=== PATIENT | male | born 1970 | race Caucasian/White ===

== ENCOUNTER 2022-07-28 11:17 | Outpatient (CLI) | payer OTHER, SELFPAY ==
--- NOTE | 2022-07-28 11:28 | XR_ITS ---
WS: [id number] Left ankle, 2 views, 07/28/2022 Clinical Data: PAIN Comparison: None. Findings: No new fractures or dislocations are seen. There is internal fixation of old distal left fibular frac ture with a plate and 6 orthopedic screws. There is an additional PA screw in the distal left fibula. The ankle mortise is normal. The talus and calcaneus are unremarkable. No soft tissue swelling over the medial or lateral malleolus is seen. There is a plantar spur. XR/XR ankle LT 2V [id number] Impression: 1. Internal fixation of old distal left fibular fracture. 2. Plantar spur
--- NOTE | 2022-07-28 11:28 | XR_ITS ---
WS: [id number] Lumbar spine, 3 views, 07/28/2022 Clinical Data: PAIN Comparison: None. Findings: No compression fractures or subluxation is seen. There is degenerative disc narrowing at all levels f rom L1-L2 through L5-S1. There are anterior osteophytes at L1-L5. There is a levoscoliosis. There are calcifications in the wall of the abdominal aorta but no aneurysm.. The transverse processes and SI joints are normal. XR/XR lumbar spine 2-3V* [id number] Impression: 1. Degenerative disc narrowing L1-L2 through L5-S1. 2. Levoscoliosis and osteophytes L1-L5.
== END 2022-07-28 11:18 | disposition home or self-care (01) ==
LOC: RAD 11:18
PROVIDERS: PCP Nurse Practitioner Family; Visit Provider Dermatology
DX: Z02.71 Encounter for disability determination (principal); M54.50 Low back pain, unspecified; M25.572 Pain in left ankle and joints of left foot; M77.32 Calcaneal spur, left foot; M25.78 Osteophyte, vertebrae; M41.86 Other forms of scoliosis, lumbar region
CPT/HCPCS: 72100; 73600

== ENCOUNTER 2023-08-16 11:54 | Outpatient (CLI) | payer MEDICAID, SELFPAY ==
--- NOTE | 2023-08-16 12:06 | XRR_ITS ---
PROCEDURE INFORMATION: Exam: XR Right Knee Exam date and time: 08/16/2023 12:19 PM Age: 53 years old Clinical indication: Pain; Knee; Bilateral; Additional info: Bilateral knee joint pain x 3 months TECHNIQUE: Imaging protocol: Radiologic exam of the right knee. Views: 3 views. COMPARISON: No relevant prior studies available. FINDINGS: Bones/joints: Normal. Soft tissues: Normal. XR/XR knee RT 3V* [id number] IMPRESSION: No acute findings.
--- NOTE | 2023-08-16 12:06 | XRR_ITS ---
PROCEDURE INFORMATION: Exam: XR Left Knee Exam date and time: 08/16/2023 12:19 PM Age: 53 years old Clinical indication: Pain; Knee; Bilateral; Additional info: Bilateral knee joint pain x 3 months TECHNIQUE: Imaging protocol: Radiologic exam of the left knee. Views: 3 views. COMPARISON: CR XR ankle LT 2V [id number] 07/28/2022 11:29 AM FINDINGS: Bones/joints: Negative for acute bony abnormality Soft tissues: Normal. XR/XR knee LT 3V* [id number] IMPRESSION: No acute findings.
== END 2023-08-16 11:55 | disposition home or self-care (01) ==
PROVIDERS: PCP Nurse Practitioner Family; Visit Provider Family Medicine
DX: M25.561 Pain in right knee (principal); M25.562 Pain in left knee
CPT/HCPCS: 73562

== ENCOUNTER 2025-01-31 15:47 | Emergency (ER) | payer MEDICAID, SELFPAY ==
[2025-01-31 16:08] VITALS: BP 110/68; PULSE 82; RESP 16; TEMP 36.6; O2SAT 97; BMI 31.1
--- NOTE | 2025-01-31 16:12 | W.ED.LOWEXIN ---
HPI - Extremity Injury (Lower) General: Chief Complaint: Extremity Injury, Lower Stated Complaint: Left toe injury Time Seen by Provider: 01/31/25 16:09 History of Present Illness: 54-year-old male patient comes in today with a injury to his left foot that occurred about 1 month ago. Patient states that he believes that he stubbed it about a month ago. Patient has noticed some redness and an ulceration to the middle toe on the dorsal aspect. Patient denies any history of diabetes. Patient does have some chronic back pain and neuropathy in his feet secondary to it. Related Data Home Medications ?Medication ?Instructions ?Recorded ?Confirmed hydroxyzine HCl 50 mg tablet 50 mg PO QID PRN 06/25/20 06/25/20 metoprolol succinate 50 mg capsule 100 mg PO DAILY 06/25/20 06/25/20 sprinkle, ext. release 24 hr trazodone 150 mg tablet 300 mg PO DAILY 06/25/20 06/25/20 Previous Rx's ?Medication ?Instructions ?Recorded doxycycline hyclate 100 mg tablet 100 mg PO BID 10 days #20 tabs 01/31/25 Allergies Allergy/AdvReac Type Severity Reaction Status Date / Time No Known Allergies Allergy Verified 06/25/20 13:15 Review of Systems General: Reports: 10 or more systems reviewed and unremarkable except in HPI and below PFSH ED PFSH: Social History Current gender identity: Male Physical Exam Const: COMMON NORMALS: alert HENMT: COMMON NORMALS: normocephalic HEAD & SCALP: normocephalic Neck/C-Spine: COMMON NORMALS: full ROM Resp: COMMON NORMALS: normal respiratory effort Cardio: COMMON NORMALS: regular rate RATE: regular rate GI: COMMON NORMALS: Soft to palpation PALPATION: Yes Soft to palpation Back/Pelvis: COMMON NORMALS: thoracic and lumbar spine normal to inspection Extremity: COMMON NORMALS: full ROM Neuro: SENSORIUM/ORIENTATION: Yes alert Skin: COMMON NORMALS: turgor normal NARRATIVE SKIN EXAM: Note a ulcer to the third toe dorsal aspect PIP joint. GENERAL SKIN EXAM: turgor normal Course Vital Signs: Vital signs: Vital Signs Temperature 97.8 F 01/31/25 16:08 Pulse Rate 82 01/31/25 16:08 Respiratory Rate 16 01/31/25 16:08 Blood Pressure 110/68 01/31/25 16:08 Pulse Oximetry 97 01/31/25 16:08 Oxygen Delivery Me thod Room Air 01/31/25 16:08 MDM - Extremity Injury (Lower) Medical Decision Making 54-year-old male patient comes in today for injury to the left foot from approximately 1 month ago. Patient believes he stubbed it and developed a sore to the foot but has not recovered or healed completely. Patient is concerned due to some swelling and discomfort. Differential diagnosis includes not limited to wound infection, osteomyelitis, neuropathy, diabetes mellitus. X-ray notes a cortical irregularity to the fourth digit which suggest a possible fracture. Patient will be placed on antibiotics for a wound infection to the third toe. Recommended follow-up with foot and ankle specialist Dr. Fabian or Dr. Dinh for further evaluation and treatment of the wound. Patiently placed on doxycycline 100 mg twice a day and recommended to clean wound twice daily and apply antibiotic ointment. Patient reports understanding agreed to plan. Lab Data Radiology Impressions Foot X-Ray 01/31/25 16:16 IMPRESSION: Cortical irregularity in the distal portion of the proximal phalanx of the 4th toe, underlying fracture can not be excluded, recommend clinical correlation for point tenderness at this site. Laboratory Results POC Glucose 76 mg/dL (70-110) 01/31/25 16:38 All radiology interpretation(s) finalized by discharge Discharge Plan Discharge Patient Disposition: Home Clinical Impression: Infection of skin of toes Condition: Stable Prescriptions: New doxycycline hyclate 100 mg tablet 100 mg PO BID 10 Days Qty: 20 0RF No Action hydroxyzine HCl 50 mg tablet 50 mg PO QID PRN trazodone 150 mg tablet 300 mg PO DAILY metoprolol succinate 50 mg capsule,sprinkle,ER 24hr 100 mg PO DAILY Discharge Orders: Discharge ED (Routine); Ordered 01/31/25 Ordered By: Nolan Goodman Referrals: Dayanna Kennedy FNP [Primary Care Provider] - Discharge Diet: Usual diet Discharge Activity: Increase activity as tolerated Patient Instructions: Wound Care (General) Activity Restrictions/Additional Instructions: Clean wounds to the toe twice daily thoroughly dry, apply antibiotic ointment and cover with a clean sock. Take oral antibiotics as directed. Follow-up with foot and ankle surgeon Dr. Fabian or Dr. Dinh. Return to ER for high fever, increasing redness and swelling to the foot, or new concerns. Print Language: Serbian Coding Level of Care Code ED Packing Machine Operator for Aris Ojeda
--- NOTE | 2025-01-31 16:16 | XRR_ITS ---
PROCEDURE INFORMATION: Exam: XR Left Foot Exam date and time: 01/31/2025 5:00 PM Age: 54 years old Clinical indication: Pain; Toes; Left; Prior surgery; Surgery date: 6+ months; Surgery type: Ankle repair; Additional info: Toe injury TECHNIQUE: Imaging protocol: Radiologic exam of the left foot. Views: 3 or more views. COMPARISON: CR XR ankle LT 2V [id number] 07/28/2022 11:29 AM FINDINGS: Bones/joints: Cortical irregularity in the distal portion of the proximal phalanx of the 4th toe, underlying fracture cannot be excluded at this site, recommend clinical correlation for point tenderness. Status post plate and screw for distal femoral fracture. Hardware is intact. Calcaneal spur. Soft tissues: Normal. XR/XR foot LT min 3V* [id number] IMPRESSION: Cortical irregularity in the distal portion of the proximal phalanx of the 4th toe, underlying fracture can not be excluded, recommend clinical correlation for point tenderness at this site.
[2025-01-31 16:42] LABS: Glucose Point of Care 76 mg/dL (70-110)
[2025-01-31] MEDS: mupirocin oint 22 gm 1 APPLIC TOPICAL (17:36)
[2025-01-31] MEDS: doxycycline 100 mg Tablet PO (17:36)
[2025-01-31 18:05] VITALS: BP 114/78; PULSE 85; O2SAT 95
--- NOTE | 2025-02-04 07:52 | DCPLANNER ---
messaged podiatry for er f/u
== END 2025-01-31 18:06 | disposition home or self-care (01) ==
PROVIDERS: Emergency Provider Nurse Practitioner Family; PCP Nurse Practitioner Family
DX: L03.032 Cellulitis of left toe (principal)
CPT/HCPCS: 36416; 73630; 82962; 99284; J9999

== ENCOUNTER 2025-06-20 10:22 | Emergency (ER) | payer MEDICAID, SELFPAY ==
[2025-06-20 10:25] VITALS: BP 160/96; PULSE 106; RESP 16; TEMP 36.6; O2SAT 98; BMI 29.2
[2025-06-20 10:44] LABS: Glucose Urine UA Negative (Normal); Nitrate Urine Negative (Negative); Specific Gravity, Urine 1.006 (1.005-1.030)
[2025-06-20 10:49] LABS: Add Urine Microscopic? YES
[2025-06-20 11:17] LABS: Hematocrit 42.1 % (37-53); Hemoglobin 14.40 g/dL (11.27-16.99); Mean Corpuscular HGB Conc 34.2 g/dL (30-55); Mean Corpuscular Hemoglobin 31.6 pg (27-33); Mean Corpuscular Volume 92.5 fl (82-101); Nucleated Red Blood Cells % 0 %; Platelet Count 190 10^3/cmm (157-399); Red Blood Count 4.55 10^6/uL (3.85-5.65); White Blood Count 9.31 10^3/uL (3.29-11.43)
[2025-06-20 11:36] LABS: Alanine Aminotransferase 27 U/L (0-41); Albumin Level 4.3 g/dL (3.5-5.2); Alkaline Phosphatase 79 U/L (40-130); Anion Gap 20.1 (5-19); Aspartate Amino Transferase 28 U/L (0-40); Blood Urea Nitrogen 7 mg/dL (6-20); Calcium 9.2 mg/dL (8.5-10.5); Carbon Dioxide 20 mmol/L (22-29); Chloride 97 mmol/L (98-107); Creatinine Clr Calc Pharmacy 93.5658; Globulin 2.6 g/dL (1.3-4.6); Glucose 116 mg/dL (65-115); Osmolality Calculated 275 mOsm/kg (285-295); Potassium 4.1 mmol/L (3.5-5.1); Sodium 133 mmol/L (136-145); Total Protein 6.9 g/dL (6.6-8.7)
[2025-06-20 11:40] VITALS: BP 163/94; O2SAT 100
[2025-06-20 12:06] VITALS: BP 163/94; O2SAT 100
--- NOTE | 2025-06-20 12:09 | W.ED.MALEGU ---
HPI - Male Genitourinary General: Chief complaint: Urogenital-Male Stated complaint: cant pee Time Seen by Provider: 06/20/25 10:26 History of Present Illness: 55-year-old male who presents with inability to drain his bladder for the past two days. Patient reports fullness and pressure in his lower abdomen. He states he has been able to void only minimal amounts during this time. The patient visited his PCP this morning who noted a very small amount of urine output. Patient reports lower abdominal pain that has been present for the past two days, which has been interfering with his sleep. He denies nausea, vomiting, or fever. Patient reports some episodes of urinary incontinence when he can't hold it and it comes again, requiring him to do laundry. No prior history of similar urinary retention issues, with symptoms starting abruptly two days ago. Related Data Home Medications ?Medication ?Instructions ?Recorded ?Confirmed hydroxyzine HCl 50 mg tablet 50 mg PO QID PRN Anxiety 06/25/20 06/20/25 metoprolol succinate 50 mg capsule 100 mg PO DAILY 06/25/20 06/20/25 sprinkle, ext. release 24 hr trazodone 150 mg tablet 300 mg PO BEDTIME 06/25/20 06/20/25 atorvastatin 40 mg tablet 40 mg PO DAILY 06/20/25 06/20/25 buspirone 15 mg tablet 15 mg PO BID PRN Anxiety 06/20/25 06/20/25 loratadine 10 mg tablet 10 mg PO DAILY 06/20/25 06/20/25 losartan 100 mg tablet 100 mg PO DAILY 06/20/25 06/20/25 naproxen 500 mg tablet 500 mg PO Q12H PRN Pain 06/20/25 06/20/25 Previous Rx's ?Medication ?Instructions ?Recorded tamsulosin 0.4 mg capsule (Flomax) 0.4 mg PO DAILY #30 caps 06/20/25 Allergies Allergy/AdvReac Type Severity Reaction Status Date / Time No Known Allergies Allergy Verified 06/25/20 13:15 [facility], [facility] ED PFSH: Medical History (Updated 06/20/25 @ 12:12 by Óscar Ríos MD) Psychiatric care Social History Current gender identity: Male Physical Exam Const: COMMON NORMALS: no acute distress, average body habitus, alert and well nourished GENERAL APPEARANCE: cooperative ORIENTATION/CONSCIOUSNESS: Yes awake HENMT: COMMON NORMALS: normocephalic and atraumatic HEAD & SCALP: normocephalic and atraumatic Eye: COMMON NORMALS: conjunctivae normal CONJUNCTIVA: Yes conjunctivae normal Neck/C-Spine: GENERAL: Yes normal visual inspection Resp: COMMON NORMALS: normal respiratory effort, No retractions and No use of accessory muscles Cardio: COMMON NORMALS: regular rhythm and Peripheral pulses 2+ throughout RHYTHM: regular rhythm PERIPHERAL PULSES: Peripheral pulses 2+ throughout GI: OTHER: Abdomen is mildly distended with some diffuse suprapubic abdominal tenderness. Extremity: COMMON NORMALS: full ROM and no pedal edema Neuro: COMMON NORMALS: no focal motor deficits SENSORIUM/ORIENTATION: Yes alert Skin: COMMON NORMALS: no rashes or lesions noted GENERAL SKIN EXAM: no rashes or lesions noted Course Vital Signs: Vital signs: Vital Signs Temperature 97.8 F 06/20/25 10:25 Pulse Rate 106 H 06/20/25 10:25 Respiratory Rate 16 06/20/25 10:25 Blood Pressure 163/94 06/20/25 12:06 Pulse Oximetry 100 06/20/25 12:06 Oxygen Delivery Me thod Room Air 06/20/25 12:06 MDM - Male Medical Decision Making ROS: Constitutional: Denies fever. Gastrointestinal: Reports lower abdominal pain and pressure. Denies nausea or vomiting. Genitourinary: Reports inability to void, bladder fullness, pressure, and occasional urinary incontinence. Unable to provide urine sample at triage. All other systems reviewed and negative. MEDICATIONS AND ALLERGIES: Meds: Patient reports taking eight medications but specific names not provided Allergies: Penicillin - patient reports small dose of penicillin, but I try to stay with him suggesting possible mild reaction PAST HISTORICAL DATA: PSH: Left ankle surgery, broken toe repair Family History: Brother has a catheter INITIAL IMPRESSION AND PLAN: Given the history and presentation, the primary working diagnosis is acute urinary retention. Additional considerations include benign prostatic hyperplasia, urinary tract infection, neurogenic bladder, or urethral stricture. Based on this initial impression I will order: 1. Bladder scan to assess residual urine volume 2. Pettit catheter placement if significant residual urine present 3. CBC, CMP to assess for infection and renal function 4. Urinalysis to evaluate for infection 5. IV fluids (1L normal saline) as needed based on bladder scan results TEST INTERPRETATIONS: Bladder Scan: Over 1 liter of urine in the bladder, confirming acute urinary retention CBC: Normal with white count of 9.3, hemoglobin of 14, hematocrit of 42 Chemistry Panel: Normal renal function with BUN of 7, creatinine of 1.1. No acute electrolyte abnormalities Urinalysis: Unremarkable with negative leukocyte esterase, negative nitrites, 0-5 white blood cells, no bacteria seen PROCEDURES: Procedure: Pettit Catheter Placement Indication: Acute urinary retention with over 1 liter of urine on bladder scan Technique: Standard sterile technique was used to place a Pettit catheter Findings: Successful drainage of retained urine Complications: None Patient Tolerance: Well-tolerated with relief of symptoms CONSIDERED BUT NOT PERFORMED: Antibiotics CONSIDERED but NOT DONE due to no evidence of urinary tract infection on urinalysis (negative leukocyte esterase, negative nitrites, normal WBC count, no bacteria seen) FINAL IMPRESSION: Based on all the above, my clinical impression is most compatible with acute urinary retention, likely due to benign prostatic hyperplasia given patient's age and gender. The clinical picture is not currently suggestive of urinary tract infection, acute kidney injury, or neurological disorder affecting bladder function. Although other conditions were also considered, they were deemed unlikely based on the clinical information available. CLINICAL DISPOSITION: The patient's current condition is stable in my estimation and the most appropriate and indicated disposition at this time is discharge home with outpatient urology follow-up. The patient is safe for discharge as his acute urinary retention has been successfully treated with Pettit catheter placement, providing immediate relief. Laboratory studies show normal renal function and no evidence of infection. The patient will be discharged with a leg bag for continued bladder drainage until he can be evaluated by urology. He demonstrates understanding of catheter care instructions and knows to return if he experiences fever, increasing pain, or issues with the catheter. RISK STRATIFICATION AND CLINICAL DECISION RULES APPLIED: No formal clinical decision rules were applied in this case. Risk stratification was based on clinical assessment, laboratory findings, and response to intervention. CASE SUMMARY: 55-year-old male presented with acute urinary retention for two days with associated lower abdominal pain and pressure. Bladder scan confirmed over 1 liter of retained urine. Laboratory studies including CBC, CMP, and urinalysis were unremarkable with no evidence of infection or renal dysfunction. Pettit catheter was placed with successful drainage of retained urine and resolution of symptoms. Patient was discharged home with a leg bag and instructions for outpatient urology follow-up to address the underlying cause of his urinary retention, likely benign prostatic hyperplasia given his age and gender. No antibiotics were prescribed as there was no evidence of urinary tract infection. Patient had 2 L of urine output on reassessment. He states he feels much better. Urine is normal in appearance. He is recommended to contact urology for follow-up appointment as well. Patient will be discharged with a prescription for Flomax and will continue with Pettit catheter leg bag. Lab Data I reviewed the patient's lab results. 06/20/25 11:08 06/20/25 11:08 Laboratory Results WBC 9.31 10^3/uL (3.29-11.43) 06/20/25 11:08 RBC 4.55 10^6/uL (3.85-5.65) 06/20/25 11:08 Hgb 14.40 g/dL (11.27-16.99) 06/20/25 11:08 Hct 42.1 % (37-53) 06/20/25 11:08 MCV 92.5 fl (82-101) 06/20/25 11:08 MCH 31.6 pg (27-33) 06/20/25 11:08 MCHC 34.2 g/dL (30-55) 06/20/25 11:08 RDW 14.6 % (12.1-15.1) 06/20/25 11:08 Plt Count 190 10^3/cmm (157-399) 06/20/25 11:08 MPV 10.3 fL (7.4-10.4) 06/20/25 11:08 Neut % (Auto) 75.5 % 06/20/25 11:08 Lymph % (Auto) 13.2 % 06/20/25 11:08 [place] % (Auto) 10.1 % 06/20/25 11:08 Eos % (Auto) 0.3 % 06/20/25 11:08 Baso % (Auto) 0.6 % 06/20/25 11:08 Neut # (Auto) 7.02 10^3/uL (1.8-7.7) 06/20/25 11:08 Lymph # (Auto) 1.2 10^3/uL (0.8-4.8) 06/20/25 11:08 [place] # (Auto) 0.9 10^3/uL (0.2-0.9) 06/20/25 11:08 Eos # (Auto) 0.0 10^3/uL (0.0-0.8) 06/20/25 11:08 Baso # (Auto) 0.1 10^3/uL (0.0-0.1) 06/20/25 11:08 Nucleated RBC % (auto) 0 % 06/20/25 11:08 Nucleated RBCs # 0.0 /100WBC 06/20/25 11:08 Sodium 133 mmol/L (136-145) L 06/20/25 11:08 Potassium 4.1 mmol/L (3.5-5.1) 06/20/25 11:08 Chloride 97 mmol/L (98-107) L 06/20/25 11:08 Carbon Dioxide 20 mmol/L (22-29) L 06/20/25 11:08 Anion Gap 20.1 (5-19) H 06/20/25 11:08 BUN 7 mg/dL (6-20) 06/20/25 11:08 Creatinine 1.1 mg/dL (0.7-1.2) 06/20/25 11:08 GFR Calculation 69.2 mL/min (90-130) L 06/20/25 11:08 Glucose 116 mg/dL (65-115) H 06/20/25 11:08 Calculated Osmolality 275 mOsm/kg (285-295) L 06/20/25 11:08 Calcium 9.2 mg/dL (8.5-10.5) 06/20/25 11:08 Total Bilirubin 0.8 mg/dL (0.15-1.2) 06/20/25 11:08 AST 28 U/L (0-40) 06/20/25 11:08 ALT 27 U/L (0-41) 06/20/25 11:08 Alkaline Phosphatase 79 U/L (40-130) 06/20/25 11:08 Total Protein 6.9 g/dL (6.6-8.7) 06/20/25 11:08 Albumin 4.3 g/dL (3.5-5.2) 06/20/25 11:08 Globulin 2.6 g/dL (1.3-4.6) 06/20/25 11:08 Urine Color Yellow (Yellow) 06/20/25 10:28 Urine Appearance Clear (CLEAR) 06/20/25 10:28 Urine pH 6.0 (5-7) 06/20/25 10:28 Ur Specific [place] 1.006 (1.005-1.030) 06/20/25 10:28 Urine Protein Negative (Negative) 06/20/25 10:28 Urine Glucose (UA) Negative (Normal) 06/20/25 10:28 Urine Ketones Negative (Negative) 06/20/25 10:28 Urine Blood Negative (Negative) 06/20/25 10:28 Urine Nitrate Negative (Negative) 06/20/25 10:28 Urine Bilirubin Negative (Negative) 06/20/25 10:28 Urine Urobilinogen 0.2 mg/dL (Negative) 06/20/25 10:28 Ur Leukocyte Esterase Negative (Negative) 06/20/25 10:28 Urine RBC 0-2 /hpf (0-2) 06/20/25 10:28 Urine WBC 0-5 /hpf (0-5) 06/20/25 10:28 Ur Squamous Epith Cells 0-5 /hpf (0-5) 06/20/25 10:28 Amorphous Sediment Not Reportable 06/20/25 10:28 Urine Bacteria None seen /hpf (NONE) 06/20/25 10:28 Hyaline Casts 0-4 /lpf H 06/20/25 10:28 No radiology studies performed this visit Discharge Plan Discharge Patient Disposition: Home Clinical Impression: Acute retention of urine Condition: Stable Prescriptions: New tamsulosin [Flomax] 0.4 mg capsule 0.4 mg PO DAILY Qty: 30 0RF No Action hydroxyzine HCl 50 mg tablet 50 mg PO QID PRN (Reason: Anxiety) trazodone 150 mg tablet 300 mg PO BEDTIME metoprolol succinate 50 mg capsule,sprinkle,ER 24hr 100 mg PO DAILY atorvastatin 40 mg tablet 40 mg PO DAILY losartan 100 mg tablet 100 mg PO DAILY loratadine 10 mg tablet 10 mg PO DAILY naproxen 500 mg tablet 500 mg PO Q12H PRN (Reason: Pain) buspirone 15 mg tablet 15 mg PO BID PRN (Reason: Anxiety) Discharge Orders: Discharge ED (Routine); Ordered 06/20/25 Ordered By: Óscar Ríos Referrals: Dayanna Kennedy FNP [Primary Care Provider, Family Practice] Discharge Diet: Usual diet Discharge Activity: Increase activity as tolerated Patient Instructions: Opioid Safety, Pain Management, Patient Portal & Arturo Instructions Activity Restrictions/Additional Instructions: Instructions: 1. You have been diagnosed with acute urinary retention, which means your bladder was unable to empty properly. 2. A Pettit catheter has been placed to drain your bladder and will remain in place until you see a urologist. 3. The catheter is connected to a leg bag which will collect your urine. Empty the bag when it is half full. 4. Keep the catheter and collection system clean at all times. 5. Drink plenty of fluids (6-8 glasses of water daily) unless instructed otherwise. 6. Avoid pulling or tugging on the catheter. Follow-up: 1. Schedule an appointment with urology within 1 week. 2. Bring this discharge summary to your follow-up appointment. Return to the Emergency Department immediately if you experience: 1. Fever greater than 101?F 2. Increasing abdominal or pelvic pain 3. Blood in urine 4. Catheter becomes dislodged or stops draining 5. Leaking around the catheter 6. Foul-smelling or cloudy urine Print Language: Thai Coding Level of Care Code ED Rehabilitation Services Manager for Aris Ojeda
[2025-06-20 12:34] VITALS: BP 158/106; PULSE 103; RESP 16; O2SAT 99
--- NOTE | 2025-06-20 13:46 | PC.SOCIAL ---
Pt need a Urology referral Snack Bar Attendant tried calling pt. Had to leave a message. Pt has Medicaid only. Went ahead & faxed pt's referral to [facility]. They will call him with an appointment date/time. No other needs noted for CM.
== END 2025-06-20 12:35 | disposition home or self-care (01) ==
PROVIDERS: Family Medicine; Emergency Provider Student in an Organized Health Care Education/Training Program; PCP Nurse Practitioner Family
DX: R33.9 Retention of urine, unspecified (principal)
CPT/HCPCS: 36415; 51702; 51798; 80053; 81001; 85025; 99283

== ENCOUNTER 2025-07-09 10:14 | Emergency (ER) | payer MEDICAID, SELFPAY ==
[2025-07-09 10:18] VITALS: BP 132/87; PULSE 128; TEMP 36.5; O2SAT 98
--- OUTSIDE RECORDS SUMMARY | 2025-07-09 10:19 | XMS_ITS | Encounter Summary ---
Author Organization [facility] Address [address] [place] [address] Care Team Providers Care Compressor Stations Superintendent Name Role Phone Unavailable Primary Care Provider Unavailabl e Encounter Details Date Type Department Care Team (Late st Contact Info) Description 07/02/2025 External Device Data [facility]STRACTION Provider, Abstract NO ADDRESS ON FILE Social History Tobacco Use Types Packs/Day Years Used Date Smoking Tobacco: Never Assessed Sex and Gender Information Value Date Recorded Sex Assigned at Not on file Legal Sex Male 9:00 AM CDT Gender Identity Not on file Sexual Orientation Not on file documented as of this encounter Plan of Treatment Upcoming Encounters Date Type Department Care Team (Late st Contact Info) Description 07/12/2025 2:45 PM CDT Office Visit [facility] [address] [place] [address] Michael Kelley MD [address] [facility] [address] [place] [address] documented as of this encounter Visit Diagnoses Not on filedocumented in this encounter
--- OUTSIDE RECORDS SUMMARY | 2025-07-09 10:19 | XMS_ITS | Clinical Summary ---
Author Organization [facility] Address [address] [place] [address] Phone Care Team Providers Care Garage Door Installer Name Role Phone Unavailable Primary Care Provider Unavailabl e Encounters Date Type Department Care Team Description 07/02/2025 External Device Data [facility]STRACTION Provider, Abstract 07/02/2025 External Device Data [facility]CTION Provider, Abstract 07/02/2025 External Device Data [facility]CTION Provider, Abstract 07/01/[address] [place] [address] Provider, Abstract urology referral appointment 07/01/[address] [place] [address] Provider, Abstract from Last 3 Months Social History Tobacco Use Types Packs/Day Years Used Date Smoking Tobacco: Never Assessed Sex and Gender Information Value Date Recorded Sex Assigned at Not on file Legal Sex Male 9:00 AM CDT Gender Identity Not on file Sexual Orientation Not on file Plan of Treatment Upcoming Encounters Date Type Department Care Team (Late st Contact Info) Description 07/12/2025 2:45 PM CDT Office Visit [address] [place] [address] Michael Kelley MD [facility] [address] [facility] [address] [place] [address] Health Maintenance Due Date Last Done Comments DTAP/TDAP/TD VACCINES (1 - Tdap) 1988 HEPATITIS B VACCINES (1 of 3 - 19+ 3-dose series) 02/19 Preventative Visit-Managed Medicaid 1988 COLORECTAL SCREENING 2014 Colorectal Cancer Screening 2014 FIT-DNA Q 3 years 2014 FIT/FOBT Q 1 year 2014 Flex Sig/CT Colonography Q 5 years 2014 ZOSTER VACCINE (1 of 2) 2019 INFLUENZA VACCINE (#1) 2025 Insurance [id number]
--- OUTSIDE RECORDS SUMMARY | 2025-07-09 10:19 | XMS_ITS | Encounter Summary ---
Author Organization [facility] Address [address] [place] [address] Care Team Providers Care Lead Project Manager Name Role Phone Unavailable Primary Care Provider [...] Description 07/12/2025 2:45 PM CDT Office Visit [facility] Urology [address] [place] [address] Michael Kelley MD [address] [facility] [address] [place] [address] documented as of this encounter Visit Diagnoses Not on filedocumented in this encounter
--- OUTSIDE RECORDS SUMMARY | 2025-07-09 10:19 | XMS_ITS | Encounter Summary ---
Author Organization [facility] Address [address] [place] [address] Care Team Providers Care [address] Freight Name Role Phone Unavailable Primary Care Provider [...] Description 07/12/2025 2:45 PM CDT Office Visit [facility] Urology [address] [place] [address] Michael Kelley MD [address] [facility] [address] [place] [address] documented as of this encounter Visit Diagnoses Not on filedocumented in this encounter
--- NOTE | 2025-07-09 10:20 | W.ED.GENADLT ---
HPI - General Adult General: Chief complaint: Urogenital-Male Stated complaint: need cath put in Time Seen by Provider: 07/09/25 10:16 History of Present Illness: 55-year-old male was seen on 731 with urinary retention returns today having difficulty with his catheter. Previous chart reviewed. Patient had a Pettit placed previously for urinary retention taken out several days ago he has been able to urinate bedside at time but never feels like he gets his bladder empty is increasing discomfort. Associated symptoms: Deny chest pain, dyspnea or rash Related Data Home Medications ?Medication ?Instructions ?Recorded ?Confirmed hydroxyzine HCl 50 mg tablet 50 mg PO QID PRN Anxiety 06/25/20 07/09/25 metoprolol succinate 50 mg capsule 100 mg PO DAILY 06/25/20 07/09/25 sprinkle, ext. release 24 hr trazodone 150 mg tablet 300 mg PO BEDTIME 06/25/20 07/09/25 atorvastatin 40 mg tablet 40 mg PO DAILY 06/20/25 07/09/25 buspirone 15 mg tablet 15 mg PO BID PRN Anxiety 06/20/25 07/09/25 loratadine 10 mg tablet 10 mg PO DAILY 06/20/25 07/09/25 losartan 100 mg tablet 100 mg PO DAILY 06/20/25 07/09/25 naproxen 500 mg tablet 500 mg PO Q12H PRN Pain 06/20/25 07/09/25 Previous Rx's ?Medication ?Instructions ?Recorded tamsulosin 0.4 mg capsule (Flomax) 0.4 mg PO DAILY #30 caps 06/20/25 ciprofloxacin HCl 500 mg tablet 500 mg PO BID #20 tabs 07/09/25 (Cipro) Allergies Allergy/AdvReac Type Severity Reaction Status Date / Time Penicillins Allergy Unknown Verified 07/09/25 10:23 Review of Systems Const: Denies: fever(s) or chills Card: Denies: chest pain Resp: Denies: dyspnea GI: Denies: abdominal pain : Reports: dysuria, urinary frequency, urinary urgency, difficulty starting urination and oliguria Musc: Denies: neck pain or back pain Skin/Breast: Denies: rash PFSH ED PFSH: Medical History Psychiatric care Social History Current gender identity: Male Physical Exam Const: GENERAL APPEARANCE: cooperative ORIENTATION/CONSCIOUSNESS: Yes awake, Yes oriented to person, Yes oriented to place and Yes oriented to time HENMT: COMMON NORMALS: normocephalic, atraumatic and hearing grossly normal bilaterally HEAD & SCALP: normocephalic and atraumatic Resp: COMMON NORMALS: normal respiratory effort, No retractions, No use of accessory muscles and clear to auscultation bilaterally AUSCULTATION: clear to auscultation bilaterally Cardio: COMMON NORMALS: regular rate, regular rhythm and No murmurs present (Cardio) RATE: regular rate RHYTHM: regular rhythm GI: COMMON NORMALS: Soft to palpation and No hepatosplenomegaly present AUSCULTATION: Yes normoactive bowel sounds PALPATION: Yes Soft to palpation, No Tenderness to palpation present (GI), No Guarding due to palpation present (GI) and Yes No hepatosplenomegaly present Extremity: COMMON NORMALS: normal to inspection, capillary refill normal, no clubbing, cyanosis or edema, no calf tenderness and no pedal edema Neuro: SENSORIUM/ORIENTATION: Yes oriented to person, Yes oriented to place and Yes oriented to time Skin: COMMON NORMALS: no rashes or lesions noted GENERAL SKIN EXAM: no rashes or lesions noted Course Vital Signs: Vital signs: Vital Signs Temperature 97.7 F 07/09/25 10:18 Pulse Rate 102 H 07/09/25 13:41 Respiratory Rate 18 07/09/25 13:41 Blood Pressure 151/93 07/09/25 13:41 Pulse Oximetry 99 07/09/25 13:41 Oxygen Delivery Me thod Room Air 07/09/25 11:13 MDM - General Adult Medical Decision Making Bladder scan showed greater than 900 mL in the bladder. Pettit catheter placed draining appropriately patient creatinine also slightly increased from previous UA shows signs of infection continue tamsulosin started on ciprofloxacin follow-up with urology return to the emergency room for further problems. Medical Records I reviewed the patient's medical records. Lab Data I reviewed the patient's lab results. 07/09/25 10:59 Laboratory Results Sodium 135 mmol/L (136-145) L 07/09/25 10:59 Potassium 3.8 mmol/L (3.5-5.1) 07/09/25 10:59 Chloride 98 mmol/L (98-107) 07/09/25 10:59 Carbon Dioxide 19 mmol/L (22-29) L 07/09/25 10:59 Anion Gap 21.8 (5-19) H 07/09/25 10:59 BUN 13 mg/dL (6-20) 07/09/25 10:59 Creatinine 1.3 mg/dL (0.7-1.2) H 07/09/25 10:59 GFR Calculation 57.1 mL/min (90-130) L 07/09/25 10:59 Glucose 99 mg/dL (65-115) 07/09/25 10:59 Calculated Osmolality 280 mOsm/kg (285-295) L 07/09/25 10:59 Calcium 9.6 mg/dL (8.5-10.5) 07/09/25 10:59 Urine Color Yellow (Yellow) 07/09/25 12:03 Urine Appearance Turbid (CLEAR) A 07/09/25 12:03 Urine pH 6.0 (5-7) 07/09/25 12:03 Ur Specific Quail 1.006 (1.005-1.030) 07/09/25 12:03 Urine Protein 1+ (Negative) A 07/09/25 12:03 Urine Glucose (UA) Negative (Normal) 07/09/25 12:03 Urine Ketones Trace (Negative) 07/09/25 12:03 Urine Blood 1+ (Negative) A 07/09/25 12:03 Urine Nitrate Positive (Negative) A 07/09/25 12:03 Urine Bilirubin Negative (Negative) 07/09/25 12:03 Urine Urobilinogen 0.2 mg/dL (Negative) 07/09/25 12:03 Ur Leukocyte Esterase 3+ (Negative) A 07/09/25 12:03 Urine RBC 5-10 /hpf (0-2) H 07/09/25 12:03 Urine WBC Too numerous to cnt /hpf (0-5) H 07/09/25 12:03 Ur Squamous Epith Cells 0-4 /hpf (0-5) H 07/09/25 12:03 Amorphous Sediment Not Reportable 07/09/25 12:03 Urine Bacteria 3+ /hpf (NONE) H 07/09/25 12:03 All radiology interpretation(s) finalized by discharge Discharge Plan Discharge Patient Disposition: Home Clinical Impression: Urinary tract infection, Acute retention of urine Condition: Stable Prescriptions: New ciprofloxacin HCl [Cipro] 500 mg tablet 500 mg PO BID Qty: 20 0RF No Action hydroxyzine HCl 50 mg tablet 50 mg PO QID PRN (Reason: Anxiety) trazodone 150 mg tablet 300 mg PO BEDTIME metoprolol succinate 50 mg capsule,sprinkle,ER 24hr 100 mg PO DAILY atorvastatin 40 mg tablet 40 mg PO DAILY losartan 100 mg tablet 100 mg PO DAILY loratadine 10 mg tablet 10 mg PO DAILY naproxen 500 mg tablet 500 mg PO Q12H PRN (Reason: Pain) buspirone 15 mg tablet 15 mg PO BID PRN (Reason: Anxiety) tamsulosin [Flomax] 0.4 mg capsule 0.4 mg PO DAILY Qty: 30 0RF Discharge Orders: Discharge ED (Routine); Ordered 07/09/25 Ordered By: James Julio Referrals: Dayanna Kennedy FNP [Primary Care Provider, Family Practice] Discharge Diet: Usual diet Discharge Activity: Resume usual activity Patient Instructions: Opioid Safety, Pain Management, Patient Portal & Arturo Instructions Activity Restrictions/Additional Instructions: [facility]. It is very important that you follow up as instructed or that you return to the Emergency Department should you have concerns or if your condition changes or worsens in any way. You were seen in the emergency room with complaints of difficulty with urination. On scanning your bladder was holding over 900 mL of urine. Pettit catheter was replaced. UA shows you still have an infection as well. Will culture the urine and start you on oral antibiotics continue tamsulosin and follow-up with your primary care doctor. Print Language: Palauan Coding Level of Care Code ED Tube Sizer And Cutter Operator for Aris Ojeda
[2025-07-09 11:13] VITALS: BP 151/93; O2SAT 96
[2025-07-09 11:38] LABS: Anion Gap 21.8 (5-19); Blood Urea Nitrogen 13 mg/dL (6-20); Calcium 9.6 mg/dL (8.5-10.5); Carbon Dioxide 19 mmol/L (22-29); Chloride 98 mmol/L (98-107); Creatinine Clr Calc Pharmacy 78.0310; Glucose 99 mg/dL (65-115); Osmolality Calculated 280 mOsm/kg (285-295); Potassium 3.8 mmol/L (3.5-5.1); Sodium 135 mmol/L (136-145)
[2025-07-09 12:28] LABS: Glucose Urine UA Negative (Normal); Nitrate Urine Positive (Negative); Specific Gravity, Urine 1.006 (1.005-1.030)
[2025-07-09 13:12] LABS: Add Urine Microscopic? YES
[2025-07-09 13:41] VITALS: BP 151/93; PULSE 102; RESP 18; O2SAT 99
--- NOTE | 2025-07-11 09:39 | DCPLANNER ---
faxed referral packet to [facility] urology
== END 2025-07-09 13:42 | disposition home or self-care (01) ==
PROVIDERS: Emergency Provider Family Medicine; PCP Nurse Practitioner Family
DX: N39.0 Urinary tract infection, site not specified (principal); R33.8 Other retention of urine
CPT/HCPCS: 36415; 51702; 51798; 80048; 81001; 87077; 87086; 87186; 99283

== ENCOUNTER → 2025-08-28 09:59 | Outpatient (BNVA) | payer OTHER, SELFPAY | PROVIDERS: PCP Nurse Practitioner Family; Visit Provider Psychiatry & Neurology Psychiatry | DX: F33.1 Major depressive disorder, recurrent, moderate (principal) | CPT/HCPCS: 80061; 83036 ==